=== PATIENT | male | born 2000 | race Caucasian/White ===

== ENCOUNTER 2019-02-19 07:10 | Emergency (ER) | payer OTHER ==
[~2019-02-19] VITALS: Ht 182.9 cm; Wt 77.3 kg
[2019-02-19 07:17] VITALS: Ht 182.9 cm; Wt 77.3 kg
[2019-02-19 07:41] LABS: BASOPHILS 0.1 % (0-2); EOSINOPHILS 0.1 % (0-7); HEMOGLOBIN 15.5 g/dL (13.5-17.5); IMMATURE GRANULOCYTES 0.4 % (0-5); LYMPHOCYTES 14.3 % (15-50); MCH 33.3 pg (26.0-34.0); MCHC 37.8 g/dL (31.0-37.0); MCV 88.2 fL (80.0-100.0); MEAN PLATELET VOLUME 8.6 fL (7.4-10.4); MONOCYTES 4.2 % (2-11); NEUTROPHILS 80.9 % (40-80); PLATELET COUNT 215 10x3/uL (130-400); RBC 4.65 10x6/uL (4.20-6.10); WBC 9.6 10x3/uL (4.8-10.8)
[2019-02-19 07:59] LABS: ALBUMIN 4.7 g/dL (3.4-5.0); ALKALINE PHOSPHATASE 43 U/L (46-116); ALT (SGPT) 23 U/L (10-68); AMYLASE - SERUM 30 U/L (25-115); BILIRUBIN - TOTAL 1.22 mg/dL (0.2-1.3); CALC OSMOLALITY 284 mosm/kg (275-300); CALCIUM 9.8 mg/dL (8.5-10.1); CARBON DIOXIDE 23.2 mmol/L (21.0-32.0); CHLORIDE - SERUM 102 mmol/L (98-107); GLUCOSE 70 mg/dL (74-106); LIPASE 65 U/L (73-393); POTASSIUM - SERUM 4.1 mmol/L (3.5-5.1); PROTEIN - SERUM 7.6 g/dL (6.4-8.2); SODIUM 142 mmol/L (136-145); UREA NITROGEN 23 mg/dL (7-18); eGFR NON AFRICAN AMERICAN > 90 mL/min (90-120)
[2019-02-19 08:01] LABS: APPEARANCE CLEAR (CLEAR); BILIRUBIN NEGATIVE (NEGATIVE); COLOR YELLOW (YELLOW); GLUCOSE NEGATIVE (NEGATIVE); KETONE LARGE mg/dL (NEGATIVE); NITRITE NEGATIVE (NEGATIVE); PROTEIN NEGATIVE (NEGATIVE); UROBILINOGEN NORMAL (NORMAL)
[2019-02-19] MEDS ORDERED: ZOFRAN4 MG PO (08:13)
[2019-02-19 09:40] VITALS: BP 135/66
[2019-02-22 17:08] LABS: CHLAMYDIA TRACHOMATIS, NAA Negative (Negative)
== END 2019-02-19 09:40 | disposition home or self-care (01) ==
LOC: D.ER 07:10
PROVIDERS: Emergency Medicine
DX: R11.10 Vomiting, unspecified (principal); K92.0 Hematemesis